=== PATIENT | female | born 1965 | race Caucasian/White ===

== ENCOUNTER → 2016-03-23 | Outpatient (CLI) | payer BC ==
--- NOTE | 2016-03-23 16:46 | DIAGNOSTIC IMAGING REPORT ---
LEFT HAND MIN 3 VIEWS ROUTINE CLINICAL HISTORY: R76.8 Positive AMANDEEP (antinuclear antibody), and pain. COMPARISON: None. DISCUSSION: No fractures or dislocations are visualized. The bony mineralization appears normal. There are no erosive changes. IMPRESSION: 1. No fractures identified 2. No evidence of erosive disease Electronically signed by: Matias Pickard M.D. 03/23/2016 4:44 PM Dictated Date/Time: 03/23/2016 4:43 PM
--- NOTE | 2016-03-23 16:47 | DIAGNOSTIC IMAGING REPORT ---
RIGHT HAND MIN 3 VIEWS ROUTINE CLINICAL HISTORY: R76.8 Positive AMANDEEP (antinuclear antibody), hand pain COMPARISON: None. DISCUSSION: No fractures are visualized. The bony mineralization appears normal. There are no bony erosions. IMPRESSION: 1. No fractures identified 2. No evidence of erosive disease Electronically signed by: Matias Pickard M.D. 03/23/2016 4:45 PM Dictated Date/Time: 03/23/2016 4:44 PM
[2016-03-30 17:44] LABS: ALBUMIN 4.2 G/DL (3.8-4.8); ANTI-CENTROMERE AB <1.0 NEG AI (<1.0 NEG); ANTI-SS-A <1.0 NEG AI (<1.0 NEG); ANTI-SS-B <1.0 NEG AI (<1.0 NEG); DNA ds CRITHIDIA NEGATIVE (NEGATIVE); GAMMA GLOBULIN 0.8 G/DL (0.8-1.7); HLA-B27** TC 528X POSITIVE (NEGATIVE); MICROSOMAL AB <1 IU/ML (<9); Sm Antibody <1.0 NEG AI (<1.0 NEG)
== END | disposition home or self-care (01) ==
LOC: C.RAD1850 16:11
PROVIDERS: ATTEND Internal Medicine Rheumatology
DX: G43.909 Migraine, unspecified, not intractable, without status migrainosus (principal); R76.8 Other specified abnormal immunological findings in serum; M35.9 Systemic involvement of connective tissue, unspecified

== ENCOUNTER → 2016-04-27 | Outpatient (CLI) | payer BC ==
--- NOTE | 2016-04-27 13:03 | DIAGNOSTIC IMAGING REPORT ---
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 FINDINGS: There is no fracture. No subluxation. Disc spaces are preserved. IMPRESSION: No fracture or subluxation within the lumbar spine. Electronically signed by: Eric De La Cruz M.D. 04/27/2016 1:02 PM Dictated Date/Time: 04/27/2016 1:01 PM
== END | disposition home or self-care (01) ==
LOC: C.RAD1850 12:35
PROVIDERS: ATTEND Internal Medicine Rheumatology
DX: M35.9 Systemic involvement of connective tissue, unspecified (principal); M54.40 Lumbago with sciatica, unspecified side; Z79.1 Long term (current) use of non-steroidal anti-inflammatories (NSAID); Z79.899 Other long term (current) drug therapy; Z15.89 Genetic susceptibility to other disease

== ENCOUNTER → 2017-01-01 | Outpatient (CLI) | payer BC ==
--- NOTE | 2017-01-01 12:09 | DIAGNOSTIC IMAGING REPORT ---
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 Acute back pain COMPARISON: Lumbar spine radiographs 04/27/2016 TECHNIQUE: Frontal and lateral views of the thoracic spine FINDINGS: There are 12 thoracic type vertebral segments present. No acute fracture or subluxation. There is minimal multilevel endplate spurring without significant intervertebral disc space narrowing. No syndesmophytes or increased sclerosis of the vertebral bodies identified. No ankylosis. Surgical clips project over the superior mediastinum. Cholecystectomy clips are noted. IMPRESSION: 1. No acute fracture or subluxation. 2. Minimal endplate spurring of the thoracic spine without significant degenerative changes identified. The above report was generated using voice recognition software. It may contain grammatical, syntax or spelling errors. Electronically signed by: Mark Coles M.D. 01/01/2017 12:08 PM Dictated Date/Time: 01/01/2017 12:06 PM
== END | disposition home or self-care (01) ==
LOC: C.RAD1850 11:38
PROVIDERS: ATTEND Internal Medicine Rheumatology
DX: M12.80 Other specific arthropathies, not elsewhere classified, unspecified site (principal); M54.6 Pain in thoracic spine; Z79.1 Long term (current) use of non-steroidal anti-inflammatories (NSAID); Z79.899 Other long term (current) drug therapy

== ENCOUNTER → 2017-07-08 | Outpatient (CLI) | payer BC ==
[2017-07-08 12:21] LABS: BASO % 0.3 %; BASO ABS # 0.02 K/uL (0-0.2); EOS % 2.6 %; EOS ABS # 0.16 K/uL (0-0.5); HEMATOCRIT 39.1 % (37-47); HEMOGLOBIN 13.2 g/dL (12.0-16.0); IG# 0.01 K/uL (0.00-0.02); LYMPH % 33.5 %; LYMPH ABS # 2.05 K/uL (1.2-3.4); MEAN CELL VOLUME 87.1 fL (80-100); MEAN CORPUSCULAR HEMOGLOBIN 29.4 pg (25-34); MEAN CORPUSCULAR HGB CONC 33.8 g/dl (32-36); MONO % 4.6 %; MONO ABS # 0.28 K/uL (0.11-0.59); NEUT % 58.8 %; PLATELET COUNT 266 K/uL (130-400); RED CELL DISTRIBUTION WIDTH CV 14.4 % (11.5-14.5); RED CELL DISTRIBUTION WIDTH SD 45.8 fL (36.4-46.3); WHITE BLOOD COUNT 6.12 K/uL (4.8-10.8)
[2017-07-08 12:31] LABS: ALBUMIN 3.7 gm/dl (3.4-5.0); ALKALINE PHOSPHATASE 93 U/L (45-117); ALT/SGPT 42 U/L (12-78); AST/SGOT 27 U/L (15-37); CREATININE 0.65 mg/dl (0.60-1.20); TOTAL PROTEIN 7.2 gm/dl (6.4-8.2)
== END | disposition home or self-care (01) ==
LOC: C.LAB 11:19
PROVIDERS: ATTEND Internal Medicine Rheumatology
DX: M15.4 Erosive (osteo)arthritis (principal); Z15.89 Genetic susceptibility to other disease; Z79.899 Other long term (current) drug therapy; K21.9 Gastro-esophageal reflux disease without esophagitis